=== PATIENT | male | born 1940 | race Caucasian/White ===

== ENCOUNTER 2016-08-03 10:08 | Inpatient (IN) | payer MEDICARE, OTHER ==
--- NOTE | ~2016-08-03 | DS ---
Discharge Summary [facility] [address] [place]. [address] NAME: ELISA OBRIEN : 40 STATUS : DIS IN PAT#: [id number] AGE: 75 ADM/REG DATE : 08/03/16 MR#: [id number] REPORT SERV DATE: 08/19/16 DICTATED BY: RON GALAVIZ DATE: 08/19/16 REPORT STATUS : Draft TRANSCRIBED BY: JASON DATE: 08/19/16 Data Collection from hospitalization DISCHARGE DIAGNOSES: 1. Coronary artery disease, status post coronary artery bypass grafting. 2. Hypertension. 3. Hyperlipidemia. 4. Dysphagia. 5. Severe gastroesophageal reflux disease, status post prior Denisse fundoplication. 6. History of ileostomy, secondary to ulcerative colitis. 7. History of diverticulitis. CONSULTATION: 1. Mir Castellano. 2. Dion Woods M.D. PROCEDURES: 1. Cardiac catheterization on 08/03/2016. 2. Coronary artery bypass grafting x4, using left internal mammary artery and right greater saphenous vein harvested endoscopically as graft. 3. Transesophageal echocardiogram on 08/04/2016. 4. Vein mapping of the bilateral lower extremities on 08/03/2016. 5. Carotid blood flow study on 08/03/2016. DISCHARGE MEDICATIONS: Cordarone 200 mg twice a day, aspirin 81 mg daily, Lipitor 40 mg at bedtime, Prinivil 2.5 mg daily, Lopressor 25 mg twice a day, Percocet 10/325 one tablet every four hours as needed, Zantac 150 mg daily as needed, Senokot one tablet twice a day as needed. CONDITION AT DISCHARGE: Stable. DISPOSITION: The patient was discharged home on a low-sodium, low-cholesterol, cardiac diet. Activities as instructed. He would follow up with Dr. Anastacio Greenfield on 08/30/[address] Saul Brian, on 09/06/2016. He would follow up with Dr. Ron Goyal, on 08/22/2016, and would follow up at cardiac rehab on 09/08/2016. HOSPITAL COURSE: This is a 75-year-old man, who was discharge from the hospital within the past 24 hours after being admitted for chest discomfort. He had an abnormal stress test. He went home on the evening prior to this admission and was awakened around two or three in the morning with nausea. He then developed some achiness again, this time in his throat and right neck area, along with some substernal discomfort. Because of these findings and the nausea, he presented back to the emergency room for evaluation. He had a chronic cough since upper respiratory symptoms earlier this year. He had no syncope or presyncope and had no lower extremity edema. He was admitted to the hospital at this time for further evaluation and treatment. Upon admission, troponin was negative. The ECG showed sinus rhythm with heart rate of 84. No acute repolarization changes were present. He had an abnormal perfusion study. It was Discharge Summary [place] [address] [place]. [address] NAME: ELISA OBRIEN : 40 STATUS : DIS IN PAT#: [id number] AGE: 75 ADM/REG DATE : 08/03/16 MR#: [id number] REPORT SERV DATE: 08/19/16 DICTATED BY: RON GALAVIZ DATE: 08/19/16 REPORT STATUS : Draft TRANSCRIBED BY: JASON DATE: 08/19/16 felt that he would need to undergo coronary angiography. He was taken to the cardiac clinical laboratory aides teacher where he underwent the above-mentioned procedure by Dr. Jesus Costa, he tolerated this well, and there were no complications. He was seen in consultation by Mir Castellano regarding multivessel coronary artery disease. His cardiac catheterization had revealed multivessel coronary artery disease including 75% stenosis to the left main coronary artery with ruptured plaque. He also had 90% stenosis to the mid LAD, 50% stenosis of the second diagonal, and 50% proximal RCA stenosis, with ejection fraction calculated around 60%, with no mention of valvular abnormality. It was felt that he would need to undergo urgent coronary artery bypass grafting. He had been placed in the ICU overnight and was on a heparin drip. He had no complaints of chest pain or shortness of breath. He had vein mapping of the bilateral lower extremities and a carotid blood flow study. The following day, he was taken to the operating room where he underwent the above-mentioned procedure. He tolerated this well and there were no complications. On postop day #1, he was briefly on Levophed, that was now off, he had no edema. He was off his pressors. He was up sitting in a chair. He said he felt well. Pain was tolerable. He was off drips. Mediastinal chest tube was removed. He was encouraged to mobilize. On 08/06/2016, his lungs were clear. He had no edema. Diuresis was begun. He did complain of some dysphagia and odynophagia. Nitroglycerin was discontinued. Metoprolol was increased. On 08/07/2016, he had no new complaints. His incisions looked okay. His lungs were clear. O2 was discontinued. He was seen by Dr. Dion Woods regarding dysphagia. He had been complaining of chronic recurrent dysphagia to solids and liquids. He had a Denisse fundoplication approximately seven years ago and had undergone an esophagus dilatation by Dr. Ron Goyal in the past. The patient felt that the stricture was back and he was having some trouble swallowing. He wanted further evaluation. White blood cell count was 12.6. He was felt to have possible esophageal spasm or reflux esophagitis. The patient was advised to treat himself with Prilosec and follow up with Dr. Ron Goyal for dilatation in the near future. Amiodarone was decreased. The next day, discharge planning was performed. He was ambulating in the sutton. On 08/09/2016, his lungs were clear. He did have a bowel movement. He was alert and cooperative. He had no focal deficits. Discharge instructions were given. Due to his improved and stable condition, he was discharged home to be followed by home health care with the above-stated instructions. Information collected by: Janine Ramirez I submit the above information as my discharge summary. TG/MODL Ron Galaviz M.D. / [id number] CC: MD Mann Yang M.D. Henry Paik, M.D. Discharge Summary [address] [address] NAME: ELISA OBRIEN : 40 STATUS : DIS IN PAT#: [id number] AGE: 75 ADM/REG DATE : 08/03/16 MR#: [id number] REPORT SERV DATE: 08/19/16 DICTATED BY: RON GALAVIZ DATE: 08/19/16 REPORT STATUS : Draft TRANSCRIBED BY: MODL DATE: 08/19/16 Mir Castellano NP
--- NOTE | ~2016-08-03 | CN ---
Consultation Report [facility] [address] [facility] [place]. [address] NAME: OMAR OBRIEN : 40 STATUS : ADM Linda PAT#: [id number] AGE: 75 ADM/REG DATE : 08/03/16 MR#: [id number] REPORT SERV DATE: 08/04/16 DICTATED BY: ARTURO GREENE DATE: 08/04/16 REPORT STATUS : Draft TRANSCRIBED BY: MODL DATE: 08/04/16 CONSULT DATE OF CONSULTATION: 08/03/2016 NURSE PRACTITIONER WITH CARDIOTHORACIC SURGERY REASON FOR CONSULTATION: Multivessel coronary artery disease. HISTORY OF PRESENT ILLNESS: This is a pleasant 75-year-old male with a history of severe GERD and ulcerative colitis. He recently presented to the emergency room a few days ago with chest pain but was told that his workup was negative and sent home. He re- presented back to the emergency room on 08/03/2016, with chest pain and again his EKG and troponin were negative. The patient was taken for cardiac catheterization yesterday afternoon and found to have multivessel coronary artery disease including a 75% stenosis to his left main coronary artery with ruptured plaque. He also had a 90% stenosis to the mid LAD; 50% stenosis of the second diagonal; and 50% proximal RCA stenosis with ejection fraction calculated around 60% with no mention of valvular abnormality. Cardiothoracic Surgery was asked to evaluate for urgent coronary artery bypass grafting. The patient has been in ICU overnight and is on heparin drip with no complaints of chest pain or shortness of breath. His family is with him at the bedside. PAST MEDICAL HISTORY: Ulcerative colitis, diverticulitis, and severe GERD. PAST SURGICAL HISTORY: He has had varicose vein stripping of his lower extremities, Denisse fundoplication for severe GERD, and ileostomy at the age of 25 for diverticulitis. FAMILY HISTORY: Father's history is unknown. No other family history of coronary artery disease. 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 He is . He has one grown child. He denies any history of tobacco abuse, alcohol abuse, or use of illicit drugs. ALLERGIES: HE REPORTS AN ALLERGY TO PENICILLIN. HOME MEDICATIONS: Aspirin 81 mg per day and ranitidine 150 mg p.o. as needed. REVIEW OF SYSTEMS: A 10-point review of systems was obtained and is negative other than HPI. PHYSICAL EXAMINATION: VITAL SIGNS: Temperature 98.3, heart rate 59, blood pressure 119/65, respiratory rate 17, and O2 saturation 98% on 2 liters. GENERAL: Pleasant thin male, in no acute distress. Consultation Report [place] [id number] [place]. [address] NAME: OMAR OBRIEN : 40 STATUS : ADM Linda PAT#: [id number] AGE: 75 ADM/REG DATE : 08/03/16 MR#: [id number] REPORT SERV DATE: 08/04/16 DICTATED BY: ARTURO GREENE DATE: 08/04/16 REPORT STATUS : Draft TRANSCRIBED BY: JASON DATE: 08/04/16 NEUROLOGIC: Alert and oriented x3. Pupils are equal, round, and reactive to light and accommodation. He exhibits equal strength bilaterally upper extremities and lower extremities. PSYCHIATRIC: Normal mood, talkative, pleasant. HEENT: Head normocephalic and atraumatic. Nose midline with no abnormalities. Teeth with good dentition overall. Ears with no abnormalities. Sclerae clear. NECK: Supple with no thyromegaly or lymphadenopathy. LUNGS: Clear to auscultation bilaterally with normal effort. CARDIAC: S1, S2 with no murmurs, rubs, or gallops. ABDOMEN: Soft. Nontender with active bowel sounds. He does have an ileostomy present. EXTREMITIES: Free of cyanosis, clubbing, or edema. LAB DATA: White blood cell count 7.8, hemoglobin 11.9, hematocrit 36.1, and platelets 271. Sodium 144, potassium 4.0, chloride 109, bicarbonate 26, BUN 19, creatinine 0.9, glucose 104, and hemoglobin A1c 5.6. ASSESSMENT AND PLAN: This is a pleasant 75-year-old male, who was recently admitted with chest pain, found to have multivessel coronary artery disease per arteriogram yesterday with left main coronary artery stenosis of 75% with a ruptured plaque. The patient needs urgent 3-to-4 vessel CAB. I have discussed the risks and benefits of surgery with the patient as well as his STS risk scores. STS risk stratification for him and this particular surgery include an overall mortality of 0.8% and morbidity mortality of 7.6%, and I have reviewed these findings in regard to expectations for surgery and recovery with him and his family. Addressed questions from the family and they are willing to proceed with surgery. We do appreciate the consultation. The patient will be taken for coronary artery bypass grafting today at 10 a.m. We look forward to helping you take care of Mr. Omar Obrien. DEBRA/JASON Arturo Greene NP / [id number] CC: MD Mann Yang M.D.
--- NOTE | ~2016-08-03 | CN ---
Consultation Report [facility] [address] [facility] [place]. [address] NAME: ELISA OBRIEN : 40 STATUS : ADM IN PAT#: [id number] AGE: 75 ADM/REG DATE : 08/03/16 MR#: [id number] REPORT SERV DATE: 08/07/16 DICTATED BY: DION WOODS DATE: 08/07/16 REPORT STATUS : Draft TRANSCRIBED BY: MODL DATE: 08/07/16 CONSULTATION DATE OF CONSULTATION: 08/07/2016 INDICATION: The patient with dysphagia. HISTORY OF PRESENT ILLNESS: 75-year-old gentleman with coronary artery disease, who presented with chest pain. Subsequent cardiac workup led him to have a bypass graft surgery two days ago. The patient also is complaining of chronic recurrent dysphagia to solids and liquids. He had a Denisse fundoplication approximately seven years ago and has had esophagus dilatation by Dr. Bashir Goyal in the past. The patient feels that the stricture is back, he is having some trouble swallowing, and he is wanting further evaluation. MEDICATIONS: Aspirin and Zantac. ALLERGIES: PENICILLIN. PHYSICAL EXAMINATION: VITAL SIGNS: Temperature is 99, blood pressure is 100/62, pulse of 72. HEENT: Head is normocephalic, atraumatic. Throat is clear. LUNGS: Clear. HEART: S1, S2 without murmurs, gallops, rubs. ABDOMEN: Normoactive bowel sounds. Soft, nondistended, nontender. EXTREMITIES: Negative for cyanosis, clubbing, edema. LABORATORY STUDIES: Shows sodium 142, potassium 3.9, BUN 24, creatinine 0.98. White count of 12.6, H and H of 9.8 and 30.2, platelet count of 210. IMPRESSION: The patient with dysphagia to solids and liquids. Possible esophageal spasm or reflux esophagitis. Regardless, I believe this is terrific for patient to undergo endoscopy and dilatation, especially given coronary artery bypass graft surgery just two days ago. I advised the patient to treat himself with Prilosec 20 mg p.o. b.i.d. and follow up with Dr. Bashir Goyal for dilatation in the near future. HP/JASON Dion Woods M.D. / [id number] Consultation Report [address] [address] NAME: ELISA OBRIEN : 40 STATUS : ADM IN PAT#: [id number] AGE: 75 ADM/REG DATE : 08/03/16 MR#: [id number] REPORT SERV DATE: 08/07/16 DICTATED BY: DION WOODS DATE: 08/07/16 REPORT STATUS : Draft TRANSCRIBED BY: MODL DATE: 08/07/16 CC: MD Mann Yang M.D.
--- NOTE | ~2016-08-03 | HP ---
History And Physical [place] [id number] [place]. [address] NAME: ELISA OBRIEN : 40 STATUS : DIS IN PAT#: [id number] AGE: 75 ADM/REG DATE : 08/03/16 MR#: [id number] REPORT SERV DATE: 08/11/16 DICTATED BY: RON WHITESIDE DATE: 08/03/16 REPORT STATUS : Draft TRANSCRIBED BY: MODLuisito DATE: 08/03/16 DATE OF ADMISSION: 08/03/2016 INDICATION: Substernal chest pain, ACS. HISTORY OF PRESENT ILLNESS: The patient is a 75-year-old white male who was discharged from the hospital within the last 24 hours after being admitted for chest discomfort. He had an abnormal stress test. He went home last evening, was awakened around two or three in the morning with nausea. He then developed some achiness again, this time in his throat and right neck area along with some substernal discomfort. Because of these findings and the nausea, he presented back to the emergency room for evaluation. He has had a chronic cough since upper respiratory symptoms earlier this year. He has had no syncope or presyncope. He has had no lower extremity edema. CURRENT HOME MEDICATIONS: Aspirin 81 daily and ranitidine 150 per day p.r.n. ALLERGIES OR INTOLERANCES: Penicillin. 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 His had worked with him until her back surgery a year ago, now he is working eighty hour weeks. He has one child. Negative for alcohol or tobacco use. FAMILY HISTORY: Father, unknown. Mother, no history of coronary artery disease. PAST MEDICAL HISTORY/REVIEW OF SYSTEMS: He had an ileostomy for diverticulitis at age 25. He is status post tonsillectomy and had previous sinus surgeries. He had a Denisse fundoplication for severe GERD. He had lower extremity varicose vein stripping. PHYSICAL EXAMINATION: GENERAL: A 75-year-old white male. VITAL SIGNS: Blood pressure 147/70, pulse 76 and regular, respirations 17. SKIN: No xanthelasmas. HEENT: He is normocephalic. There is no pallor. Sclerae white. NECK: JVD is not elevated. No carotid bruits. CHEST: There is good AP movement. No crackles. CARDIAC: S1 normal, S2 physiologic. There is an S4. ABDOMEN: Soft. Ileostomy in place. EXTREMITIES: Without edema. NEUROLOGIC: No focal deficits. LABORATORY DATA: BUN 17, creatinine 1.02. Hemoglobin 12.7, white count 9.3. Troponin is negative. ECG shows sinus rhythm, rate 84, no acute repolarization changes present. IMPRESSION: A 75-year-old white male, with recurrent chest discomfort, abnormal perfusion study. He is admitted for coronary angiography with further recommendations pending study outcomes. History And Physical [address] [address] NAME: ELISA OBRIEN : 40 STATUS : DIS IN PAT#: [id number] AGE: 75 ADM/REG DATE : 08/03/16 MR#: [id number] REPORT SERV DATE: 08/11/16 DICTATED BY: RON WHITESIDE DATE: 08/03/16 REPORT STATUS : Draft TRANSCRIBED BY: JASON DATE: 08/03/16 DW/JASON Ron Whiteside M.D. / [id number] CC: MD Mann Yang M.D. [facility]
[2016-08-03 09:56] LABS: BASOPHILS 0.2 %; BASOPHILS ABSOLUTE 0.02 10/3/uL (0.0-0.16); EOSINOPHILS 4.5 %; EOSINOPHILS ABSOLUTE 0.42 10/3/uL (0.0-0.53); ER CBC TAT 0 Hrs 07 Mins; HEMATOCRIT 38.8 % (40.0-51.0); HEMOGLOBIN 12.7 g/dL (13.6-17.8); IMMATURE GRANULOCYTES 0.3 %; IMMATURE GRANULOCYTES ABSOLUTE 0.03 10/3/uL (0.0-0.11); LYMPHOCYTES 9.2 %; LYMPHOCYTES ABSOLUTE 0.86 10/3/uL (0.67-4.30); MEAN CORPUS HGB CONC 32.7 g/dL (32.0-36.0); MEAN CORPUSCULAR VOLUME 85.7 fL (80-100); MEAN PLATELET VOLUME 9.3 fL (9.2-13.0); MONOCYTES 6.9 %; MONOCYTES ABSOLUTE 0.64 10/3/uL (0.21-1.20); NEUTROPHILS 78.9 %; NEUTROPHILS ABSOLUTE 7.34 10/3/uL (2.02-8.40); PLATELET COUNT 317 10/3/uL (150-400); RBC DISTRIBUTION WIDTH 16.4 % (12.0-16.0); RED CELL COUNT 4.53 10/6/uL (4.7-6.1); WHITE BLOOD CELLS 9.3 10/3/uL (4.5-10.5)
[2016-08-03 09:58] LABS: MANUAL DIFF NO %
[2016-08-03 10:02] LABS: PARTIAL THROMBO TIME 29.2 SEC (22.5-37.2)
[~2016-08-03 10:08] MED LIST: ASABAYER PO; TUMSROLL PO
[2016-08-03 10:11] LABS: BUN (BLOOD UREA NITROGEN) 17 MG/DL (6-23); CALCIUM, SERUM 9.6 MG/DL (8.5-10.4); CHEST PAIN PROFILE TAT 0 Hrs 22 Mins; CHLORIDE, SERUM 106 MMOL/L (96-112); CO2 (CARBON DIOXIDE) 28 MMOL/L (24-34); CREATININE 1.02 MG/DL (0.70-1.30); GFR AFRICAN AMERICAN 83 ML/MIN (>=60); GFR NON AFRICAN AMERICAN 72 ML/MIN (>=60); GLUCOSE, SERUM 102 MG/DL (60-99); SODIUM, SERUM 141 MMOL/L (135-148); TROPONIN I <0.02 NG/ML (<0.05)
[2016-08-03] MEDS ORDERED: ASA5GR PO (12:27)
[2016-08-03] MEDS ORDERED: ZANTAC 150 PO (12:28)
[2016-08-03 14:41] LABS: CHOL/HDL RATIO(NOT ORDER) 3.2 (0-5); CHOLESTEROL 219 MG/DL (< 200); HDL CHOLESTEROL 69 MG/DL (> 39); LDL CHOLESTEROL 131 MG/DL (< 130); NON-HDL CHOLESTEROL 150 MG/DL (< 160); TRIGLYCERIDE 96 MG/DL (< 150)
[2016-08-03 19:04] LABS: BASOPHILS 0.5 %; BASOPHILS ABSOLUTE 0.04 10/3/uL (0.0-0.16); EOSINOPHILS 7.7 %; EOSINOPHILS ABSOLUTE 0.67 10/3/uL (0.0-0.53); HEMATOCRIT 37.2 % (40.0-51.0); HEMOGLOBIN 12.1 g/dL (13.6-17.8); IMMATURE GRANULOCYTES 0.1 %; IMMATURE GRANULOCYTES ABSOLUTE 0.01 10/3/uL (0.0-0.11); LYMPHOCYTES 15.1 %; LYMPHOCYTES ABSOLUTE 1.32 10/3/uL (0.67-4.30); MEAN CORPUS HGB CONC 32.5 g/dL (32.0-36.0); MEAN CORPUSCULAR HEMOGLOB 27.9 pg (26.0-34.0); MEAN CORPUSCULAR VOLUME 85.9 fL (80-100); MEAN PLATELET VOLUME 9.3 fL (9.2-13.0); MONOCYTES 8.3 %; MONOCYTES ABSOLUTE 0.73 10/3/uL (0.21-1.20); NEUTROPHILS 68.3 %; NEUTROPHILS ABSOLUTE 5.98 10/3/uL (2.02-8.40); PLATELET COUNT 297 10/3/uL (150-400); RBC DISTRIBUTION WIDTH 16.5 % (12.0-16.0); RED CELL COUNT 4.33 10/6/uL (4.7-6.1); WHITE BLOOD CELLS 8.8 10/3/uL (4.5-10.5)
[2016-08-03 19:05] LABS: MANUAL DIFF NO %
[2016-08-03 19:08] LABS: INTERNATIONAL NORMAL RATI 1.1 UNITS (-); PROTIME (NOT ORD) 14.3 SEC (12.0-14.5)
[2016-08-03 19:23] LABS: A/G RATIO 0.8 (0.7-1.9); ALBUMIN 3.1 G/DL (3.5-5.0); ALKALINE PHOSPHATASE 79 U/L (45-117); BUN (BLOOD UREA NITROGEN) 17 MG/DL (6-23); CALCIUM, SERUM 8.9 MG/DL (8.5-10.4); CHLORIDE, SERUM 108 MMOL/L (96-112); CO2 (CARBON DIOXIDE) 24 MMOL/L (24-34); CREATININE 1.04 MG/DL (0.70-1.30); GFR AFRICAN AMERICAN 81 ML/MIN (>=60); GFR NON AFRICAN AMERICAN 70 ML/MIN (>=60); GLOBULIN 3.9 G/DL (2.5-4.1); GLUCOSE, SERUM 95 MG/DL (60-99); SGOT(AST) 18 U/L (5-40); SGPT(ALT) 15 U/L (5-65); SODIUM, SERUM 143 MMOL/L (135-148); TOTAL BILIRUBIN 0.3 MG/DL (0-1.2); TROPONIN I <0.02 NG/ML (<0.05)
[2016-08-03 21:47] LABS: ASCORBIC ACID (UR NOT ORDER) NEG (NEG); BILIRUBIN, URINE NEGATIVE (NEG); KETONE, URINE NEGATIVE (NEG); LEUKOCYTE ESTERASE(NOT OR NEG (NEG); WBC (NOT ORDERED) (RFLEX) < 1 (0-5)
[2016-08-04 03:21] LABS: BASOPHILS 0.5 %; BASOPHILS ABSOLUTE 0.04 10/3/uL (0.0-0.16); EOSINOPHILS 10.8 %; EOSINOPHILS ABSOLUTE 0.84 10/3/uL (0.0-0.53); HEMATOCRIT 36.1 % (40.0-51.0); HEMOGLOBIN 11.9 g/dL (13.6-17.8); IMMATURE GRANULOCYTES 0.1 %; IMMATURE GRANULOCYTES ABSOLUTE 0.01 10/3/uL (0.0-0.11); LYMPHOCYTES 16.4 %; LYMPHOCYTES ABSOLUTE 1.28 10/3/uL (0.67-4.30); MEAN CORPUSCULAR HEMOGLOB 28.1 pg (26.0-34.0); MEAN CORPUSCULAR VOLUME 85.1 fL (80-100); MONOCYTES 6.9 %; MONOCYTES ABSOLUTE 0.54 10/3/uL (0.21-1.20); NEUTROPHILS 65.3 %; NEUTROPHILS ABSOLUTE 5.09 10/3/uL (2.02-8.40); PLATELET COUNT 271 10/3/uL (150-400); RBC DISTRIBUTION WIDTH 16.7 % (12.0-16.0); RED CELL COUNT 4.24 10/6/uL (4.7-6.1); WHITE BLOOD CELLS 7.8 10/3/uL (4.5-10.5)
[2016-08-04 03:22] LABS: MANUAL DIFF NO %
[2016-08-04 03:27] LABS: INTERNATIONAL NORMAL RATI 1.1 UNITS (-); PROTIME (NOT ORD) 14.3 SEC (12.0-14.5)
[2016-08-04 03:28] LABS: PARTIAL THROMBO TIME 82.8 SEC (22.5-37.2)
[2016-08-04 03:36] LABS: BUN (BLOOD UREA NITROGEN) 19 MG/DL (6-23); CALCIUM, SERUM 8.7 MG/DL (8.5-10.4); CHLORIDE, SERUM 109 MMOL/L (96-112); CHOL/HDL RATIO(NOT ORDER) 2.7 (0-5); CHOLESTEROL 181 MG/DL (< 200); CO2 (CARBON DIOXIDE) 26 MMOL/L (24-34); CREATININE 0.95 MG/DL (0.70-1.30); GFR AFRICAN AMERICAN 90 ML/MIN (>=60); GFR NON AFRICAN AMERICAN 78 ML/MIN (>=60); GLUCOSE, SERUM 104 MG/DL (60-99); HDL CHOLESTEROL 66 MG/DL (> 39); LDL CHOLESTEROL 98 MG/DL (< 130); NON-HDL CHOLESTEROL 115 MG/DL (< 160); SGPT(ALT) 17 U/L (5-65); SODIUM, SERUM 144 MMOL/L (135-148); TRIGLYCERIDE 85 MG/DL (< 150)
[2016-08-04 15:20] LABS: BE (BASE EXCESS) -3.3 MEQ/L (0 +/- 2.5); CARBOXYHEMOGLOBIN 0.3 % (0-3); INSTRUMENT SERIAL # 11843; METHEMOGLOBIN 0.5 % (0-3); MODE SIMV; O2 CONTENT 14.4 VOL% (18-24); OPERATOR ID 35188; PCO2 (CO2 TENSION) 41 MMHG (35-45); PO2 (O2 TENSION) 237 MMHG (79-93); SAMPLE Arterial; TIDAL VOLUME 600 ML; pH 7.35 (7.37-7.43)
[2016-08-04 15:32] LABS: BASOPHILS 0.2 %; BASOPHILS ABSOLUTE 0.02 10/3/uL (0.0-0.16); EOSINOPHILS 1.6 %; IMMATURE GRANULOCYTES 0.3 %; IMMATURE GRANULOCYTES ABSOLUTE 0.04 10/3/uL (0.0-0.11); LYMPHOCYTES ABSOLUTE 0.51 10/3/uL (0.67-4.30); MEAN CORPUSCULAR VOLUME 84.8 fL (80-100); MEAN PLATELET VOLUME 8.8 fL (9.2-13.0); MONOCYTES 1.6 %; MONOCYTES ABSOLUTE 0.21 10/3/uL (0.21-1.20); NEUTROPHILS 92.3 %; NEUTROPHILS ABSOLUTE 11.92 10/3/uL (2.02-8.40); RBC DISTRIBUTION WIDTH 16.6 % (12.0-16.0)
[2016-08-04 15:34] LABS: HEMATOCRIT 27.3 % (40.0-51.0); MANUAL DIFF NO %; PLATELET COUNT 183 10/3/uL (150-400); RED CELL COUNT 3.22 10/6/uL (4.7-6.1); WHITE BLOOD CELLS 12.9 10/3/uL (4.5-10.5)
[2016-08-04 15:42] LABS: INTERNATIONAL NORMAL RATI 1.4 UNITS (-); PARTIAL THROMBO TIME 31.4 SEC (22.5-37.2); PROTIME (NOT ORD) 16.6 SEC (12.0-14.5)
[2016-08-04 15:44] LABS: BUN (BLOOD UREA NITROGEN) 17 MG/DL (6-23); CALCIUM, SERUM 8.8 MG/DL (8.5-10.4); CHLORIDE, SERUM 112 MMOL/L (96-112); CO2 (CARBON DIOXIDE) 25 MMOL/L (24-34); CREATININE 1.14 MG/DL (0.70-1.30); GFR AFRICAN AMERICAN 73 ML/MIN (>=60); GFR NON AFRICAN AMERICAN 63 ML/MIN (>=60); GLUCOSE, SERUM 97 MG/DL (60-99); POTASSIUM, SERUM 3.8 MMOL/L (3.5-5.3); SODIUM, SERUM 143 MMOL/L (135-148)
[2016-08-04 21:06] LABS: BE (BASE EXCESS) -7.7 MEQ/L (0 +/- 2.5); CARBOXYHEMOGLOBIN 0.3 % (0-3); DEVICE VM; HCO3 (ACTUAL BICARBONATE) 18.3 MEQ/L (23-27); HEMOBLOGIN CONTENT 11.3 G/DL (14-18); INSTRUMENT SERIAL # 11843; METHEMOGLOBIN 0.6 % (0-3); O2 CONTENT 15.5 VOL% (18-24); OPERATOR ID 33214; PCO2 (CO2 TENSION) 39 MMHG (35-45); PO2 (O2 TENSION) 113 MMHG (79-93); SAMPLE Arterial; pH 7.29 (7.37-7.43)
[2016-08-04 21:10] LABS: BUN (BLOOD UREA NITROGEN) 18 MG/DL (6-23); CALCIUM, SERUM 8.2 MG/DL (8.5-10.4); CHLORIDE, SERUM 114 MMOL/L (96-112); CREATININE 1.15 MG/DL (0.70-1.30); GFR AFRICAN AMERICAN 72 ML/MIN (>=60); GFR NON AFRICAN AMERICAN 62 ML/MIN (>=60); GLUCOSE, SERUM 105 MG/DL (60-99); POTASSIUM, SERUM 4.5 MMOL/L (3.5-5.3); SODIUM, SERUM 144 MMOL/L (135-148)
[2016-08-04 21:11] LABS: CO2 (CARBON DIOXIDE) 19 MMOL/L (24-34)
[2016-08-04 22:28] LABS: BASOPHILS 0.1 %; BASOPHILS ABSOLUTE 0.01 10/3/uL (0.0-0.16); EOSINOPHILS 0 %; HEMOGLOBIN 10.4 g/dL (13.6-17.8); IMMATURE GRANULOCYTES 0.2 %; IMMATURE GRANULOCYTES ABSOLUTE 0.04 10/3/uL (0.0-0.11); LYMPHOCYTES 5.5 %; LYMPHOCYTES ABSOLUTE 0.96 10/3/uL (0.67-4.30); MEAN CORPUS HGB CONC 32.7 g/dL (32.0-36.0); MEAN CORPUSCULAR HEMOGLOB 27.9 pg (26.0-34.0); MEAN CORPUSCULAR VOLUME 85.3 fL (80-100); MEAN PLATELET VOLUME 9.9 fL (9.2-13.0); MONOCYTES 3.8 %; MONOCYTES ABSOLUTE 0.66 10/3/uL (0.21-1.20); NEUTROPHILS 90.4 %; NEUTROPHILS ABSOLUTE 15.79 10/3/uL (2.02-8.40); RBC DISTRIBUTION WIDTH 16.8 % (12.0-16.0); RED CELL COUNT 3.73 10/6/uL (4.7-6.1); WHITE BLOOD CELLS 17.5 10/3/uL (4.5-10.5)
[2016-08-04 22:30] LABS: HEMATOCRIT 31.8 % (40.0-51.0); MANUAL DIFF NO %; PLATELET COUNT 243 10/3/uL (150-400)
[2016-08-04 23:00] LABS: FIBRINOGEN 408 MG/DL (230-462)
[2016-08-05 03:35] LABS: BASOPHILS 0 %; EOSINOPHILS 0 %; HEMATOCRIT 29.5 % (40.0-51.0); HEMOGLOBIN 9.5 g/dL (13.6-17.8); IMMATURE GRANULOCYTES 0.2 %; IMMATURE GRANULOCYTES ABSOLUTE 0.03 10/3/uL (0.0-0.11); LYMPHOCYTES 2.4 %; LYMPHOCYTES ABSOLUTE 0.36 10/3/uL (0.67-4.30); MEAN CORPUS HGB CONC 32.2 g/dL (32.0-36.0); MEAN CORPUSCULAR HEMOGLOB 27.5 pg (26.0-34.0); MEAN CORPUSCULAR VOLUME 85.5 fL (80-100); MEAN PLATELET VOLUME 9.3 fL (9.2-13.0); MONOCYTES ABSOLUTE 0.59 10/3/uL (0.21-1.20); NEUTROPHILS 93.4 %; NEUTROPHILS ABSOLUTE 13.73 10/3/uL (2.02-8.40); PLATELET COUNT 208 10/3/uL (150-400); RBC DISTRIBUTION WIDTH 16.9 % (12.0-16.0); RED CELL COUNT 3.45 10/6/uL (4.7-6.1); WHITE BLOOD CELLS 14.7 10/3/uL (4.5-10.5)
[2016-08-05 03:36] LABS: MANUAL DIFF NO %
[2016-08-05 03:39] LABS: INTERNATIONAL NORMAL RATI 1.2 UNITS (-); PROTIME (NOT ORD) 15.4 SEC (12.0-14.5)
[2016-08-05 03:47] LABS: BUN (BLOOD UREA NITROGEN) 19 MG/DL (6-23); CALCIUM, SERUM 7.9 MG/DL (8.5-10.4); CHLORIDE, SERUM 116 MMOL/L (96-112); CO2 (CARBON DIOXIDE) 20 MMOL/L (24-34); CREATININE 1.19 MG/DL (0.70-1.30); GFR AFRICAN AMERICAN 69 ML/MIN (>=60); GFR NON AFRICAN AMERICAN 59 ML/MIN (>=60); GLUCOSE, SERUM 108 MG/DL (60-99); POTASSIUM, SERUM 4.6 MMOL/L (3.5-5.3); SODIUM, SERUM 147 MMOL/L (135-148)
[2016-08-06 04:12] LABS: BASOPHILS 0.1 %; BASOPHILS ABSOLUTE 0.01 10/3/uL (0.0-0.16); EOSINOPHILS 0 %; HEMATOCRIT 30.8 % (40.0-51.0); HEMOGLOBIN 9.8 g/dL (13.6-17.8); IMMATURE GRANULOCYTES 0.4 %; IMMATURE GRANULOCYTES ABSOLUTE 0.06 10/3/uL (0.0-0.11); LYMPHOCYTES 3.5 %; LYMPHOCYTES ABSOLUTE 0.52 10/3/uL (0.67-4.30); MANUAL DIFF NO %; MEAN CORPUS HGB CONC 31.8 g/dL (32.0-36.0); MEAN CORPUSCULAR HEMOGLOB 27.7 pg (26.0-34.0); MEAN PLATELET VOLUME 9.5 fL (9.2-13.0); MONOCYTES 7.2 %; MONOCYTES ABSOLUTE 1.08 10/3/uL (0.21-1.20); NEUTROPHILS 88.8 %; NEUTROPHILS ABSOLUTE 13.36 10/3/uL (2.02-8.40); PLATELET COUNT 202 10/3/uL (150-400); RBC DISTRIBUTION WIDTH 17.2 % (12.0-16.0); RED CELL COUNT 3.54 10/6/uL (4.7-6.1)
[2016-08-06 04:27] LABS: CALCIUM, SERUM 8.3 MG/DL (8.5-10.4); CHLORIDE, SERUM 111 MMOL/L (96-112); CO2 (CARBON DIOXIDE) 22 MMOL/L (24-34); CREATININE 1.13 MG/DL (0.70-1.30); GFR AFRICAN AMERICAN 73 ML/MIN (>=60); GFR NON AFRICAN AMERICAN 63 ML/MIN (>=60); POTASSIUM, SERUM 4.9 MMOL/L (3.5-5.3); SODIUM, SERUM 142 MMOL/L (135-148)
[2016-08-06 04:29] LABS: BUN (BLOOD UREA NITROGEN) 23 MG/DL (6-23); GLUCOSE, SERUM 149 MG/DL (60-99)
[2016-08-07 04:13] LABS: BASOPHILS 0.2 %; BASOPHILS ABSOLUTE 0.02 10/3/uL (0.0-0.16); EOSINOPHILS 0.5 %; EOSINOPHILS ABSOLUTE 0.06 10/3/uL (0.0-0.53); HEMATOCRIT 30.2 % (40.0-51.0); HEMOGLOBIN 9.8 g/dL (13.6-17.8); IMMATURE GRANULOCYTES 0.3 %; IMMATURE GRANULOCYTES ABSOLUTE 0.04 10/3/uL (0.0-0.11); LYMPHOCYTES 7.8 %; LYMPHOCYTES ABSOLUTE 0.98 10/3/uL (0.67-4.30); MEAN CORPUS HGB CONC 32.5 g/dL (32.0-36.0); MEAN CORPUSCULAR HEMOGLOB 27.9 pg (26.0-34.0); MEAN PLATELET VOLUME 9.7 fL (9.2-13.0); MONOCYTES 8.6 %; MONOCYTES ABSOLUTE 1.08 10/3/uL (0.21-1.20); NEUTROPHILS 82.6 %; NEUTROPHILS ABSOLUTE 10.38 10/3/uL (2.02-8.40); PLATELET COUNT 210 10/3/uL (150-400); RBC DISTRIBUTION WIDTH 17.2 % (12.0-16.0); RED CELL COUNT 3.51 10/6/uL (4.7-6.1); WHITE BLOOD CELLS 12.6 10/3/uL (4.5-10.5)
[2016-08-07 04:21] LABS: MANUAL DIFF NO %
[2016-08-07 04:23] LABS: BUN (BLOOD UREA NITROGEN) 24 MG/DL (6-23); CALCIUM, SERUM 8.1 MG/DL (8.5-10.4); CHLORIDE, SERUM 107 MMOL/L (96-112); CO2 (CARBON DIOXIDE) 29 MMOL/L (24-34); CREATININE 0.98 MG/DL (0.70-1.30); GFR AFRICAN AMERICAN 87 ML/MIN (>=60); GFR NON AFRICAN AMERICAN 75 ML/MIN (>=60); GLUCOSE, SERUM 109 MG/DL (60-99); POTASSIUM, SERUM 3.9 MMOL/L (3.5-5.3); SODIUM, SERUM 142 MMOL/L (135-148)
[2016-08-08 05:17] LABS: BASOPHILS 0.3 %; BASOPHILS ABSOLUTE 0.03 10/3/uL (0.0-0.16); EOSINOPHILS 4.4 %; EOSINOPHILS ABSOLUTE 0.45 10/3/uL (0.0-0.53); HEMATOCRIT 30.7 % (40.0-51.0); HEMOGLOBIN 10.1 g/dL (13.6-17.8); IMMATURE GRANULOCYTES 0.3 %; IMMATURE GRANULOCYTES ABSOLUTE 0.03 10/3/uL (0.0-0.11); LYMPHOCYTES 12.9 %; LYMPHOCYTES ABSOLUTE 1.31 10/3/uL (0.67-4.30); MEAN CORPUS HGB CONC 32.9 g/dL (32.0-36.0); MEAN CORPUSCULAR HEMOGLOB 28.1 pg (26.0-34.0); MEAN CORPUSCULAR VOLUME 85.3 fL (80-100); MONOCYTES 7.5 %; MONOCYTES ABSOLUTE 0.76 10/3/uL (0.21-1.20); NEUTROPHILS 74.6 %; NEUTROPHILS ABSOLUTE 7.56 10/3/uL (2.02-8.40); PLATELET COUNT 250 10/3/uL (150-400); RBC DISTRIBUTION WIDTH 16.9 % (12.0-16.0); WHITE BLOOD CELLS 10.1 10/3/uL (4.5-10.5)
[2016-08-08 05:20] LABS: MANUAL DIFF NO %
[2016-08-08 05:29] LABS: BUN (BLOOD UREA NITROGEN) 21 MG/DL (6-23); CALCIUM, SERUM 8.2 MG/DL (8.5-10.4); CHLORIDE, SERUM 109 MMOL/L (96-112); CO2 (CARBON DIOXIDE) 27 MMOL/L (24-34); CREATININE 0.92 MG/DL (0.70-1.30); GFR AFRICAN AMERICAN 94 ML/MIN (>=60); GFR NON AFRICAN AMERICAN 81 ML/MIN (>=60); GLUCOSE, SERUM 110 MG/DL (60-99); POTASSIUM, SERUM 3.9 MMOL/L (3.5-5.3); SODIUM, SERUM 142 MMOL/L (135-148)
[2016-08-09] MEDS ORDERED: ASAB PO (08:01)
[2016-08-09] MEDS ORDERED: CORDARONE PO (08:02)
[2016-08-09] MEDS ORDERED: LIPITOR40 PO (08:02)
[2016-08-09] MEDS ORDERED: LOP25 PO (08:02)
[2016-08-09] MEDS ORDERED: PERCOCET 10/3251 TAB PO (08:03)
[2016-08-09] MEDS ORDERED: PRIN2.5 PO (08:03)
[2016-08-09] MEDS ORDERED: SENTAB PO (08:03)
== END 2016-08-09 13:39 | disposition home health service (06) | DRG 234 ==
LOC: ER 10:08 → CDU1 13:00 → CDU2 13:19 → CVICU 17:59 → 5NO 08-05 12:29
PROVIDERS: Emergency Medicine; Internal Medicine Cardiovascular Disease; Nurse Practitioner Family; Student in an Organized Health Care Education/Training Program; Thoracic Surgery (Cardiothoracic Vascular Surgery)
PROC: 06BP0ZZ Excision of Right Saphenous Vein, Open Approach (ICD-10-PCS; 2016-08-04)
PROC: 5A1221Z Performance of Cardiac Output, Continuous (ICD-10-PCS; 2016-08-04)
PROC: B246ZZ4 Ultrasonography of Right and Left Heart, Transesophageal (ICD-10-PCS; 2016-08-04)
PROC: 4A023N7 Measurement of Cardiac Sampling and Pressure, Left Heart, Percutaneous Approach (ICD-10-PCS; principal; 2016-08-07)
PROC: B2111ZZ Fluoroscopy of Multiple Coronary Arteries using Low Osmolar Contrast (ICD-10-PCS; 2016-08-07)
PROC: 021209W Bypass Coronary Artery, Three Arteries from Aorta with Autologous Venous Tissue, Open Approach (ICD-10-PCS; 2016-08-07)
PROC: 02100Z9 Bypass Coronary Artery, One Artery from Left Internal Mammary, Open Approach (ICD-10-PCS; 2016-08-07)
PROC: B2151ZZ Fluoroscopy of Left Heart using Low Osmolar Contrast (ICD-10-PCS; 2016-08-07)
DX: I25.110 Atherosclerotic heart disease of native coronary artery with unstable angina pectoris (principal); K51.90 Ulcerative colitis, unspecified, without complications; Z88.0 Allergy status to penicillin; Z79.82 Long term (current) use of aspirin; K21.9 Gastro-esophageal reflux disease without esophagitis; E78.5 Hyperlipidemia, unspecified; Z93.2 Ileostomy status; R13.12 Dysphagia, oropharyngeal phase; Z63.79 Other stressful life events affecting family and household
CPT/HCPCS: 36415; 71010; 71020; 71275; 72050; 78452; 80048; 80053; 80061; 81001; 82330; 82803; 82805; 82947; 82962; 83036; 83735; 84132; 84295; 84460; 84484; 85014; 85018; 85025; 85347; 85379; 85384; 85610; 85730; 86850; 86900; 86901; 86920; 87641; 93005; 93017; 93312; 93320; 93325; 93459; 93880; 94002; 94640; 94660; 94770; 96374; 96375; 96376; 99152; 99153; 99285; A9270-GY; A9502; C1713; C1769; C1887; C1894; G0365; G0378; J0690; J1170; J1644; J1885; J2150; J2250; J2370; J2405; J2440; J2720; J2800; J2930; J3010; J3370; J3475; P9045; P9047; Q9967

== ENCOUNTER 2016-09-14 09:23 | Inpatient (IN) | payer MEDICARE, OTHER ==
--- NOTE | ~2016-09-14 | DS ---
Discharge Summary [place] [address] [place]. [address] NAME: ELISA OBRIEN : 40 STATUS : ADM IN PAT#: [id number] AGE: 75 ADM/REG DATE : 09/14/16 MR#: [id number] REPORT SERV DATE: 09/17/16 DICTATED BY: CATALINA CHAVEZ DATE: 09/17/16 REPORT STATUS : Draft TRANSCRIBED BY: MODL DATE: 09/17/16 ADMISSION DATE: 09/14/2016 DISCHARGE DATE: ADDENDUM: The patient was initially to be discharged on 09/17, however, there were some concerns about his rhythm strips. He was held for an additional 24 hours. Cardiology was consulted. An echocardiogram was ordered. Echocardiogram is currently pending. It was felt that the telemetry changes were artifact. Patient had no further symptoms or problems. It was recommended he discontinue his beta sloane completely, and he was discharged with previously scheduled followup on the . CHI DISPOSITION: Pending review of his echocardiogram. He will be discharged, changes to his medications will be that he will no longer take any Lopressor at this time. Other medications stay the same. DICTATED BY: Catalina Chavez M.D. TLJm/JASON Catalina Chavez M.D. / [id number] CC: Juliana Da Silva M.D.
--- NOTE | ~2016-09-14 | DS ---
Discharge Summary [facility] [address] [place]. [address] NAME: ELISA OBRIEN : 40 STATUS : ADM IN [facility]#: [id number] AGE: 75 ADM/REG DATE : 09/14/16 MR#: [id number] REPORT SERV DATE: 09/16/16 DICTATED BY: CATALINA CHAVEZ DATE: 09/16/16 REPORT STATUS : Draft TRANSCRIBED BY: MODL DATE: 09/16/16 ADMISSION DATE: 09/14/2016 DISCHARGE DATE: 09/16/2016 FINAL HOSPITAL DIAGNOSES: 1. Nausea, vomiting, and dizziness. 2. Acute kidney injury felt secondary to hypotension and volume depletion. 3. Coronary artery disease with recent coronary artery bypass graft. 4. Hyperlipidemia. 5. Gastroesophageal reflux disease. 6. History of ulcerative colitis. CONSULTATIONS: None. PROCEDURES: CT scan of the abdomen and pelvis showing no evidence of acute abnormality within the abdomen or pelvis, small hiatal hernia, probable sludge in the gallbladder, no evidence of calcified stone or pericholecystic inflammation. Bilateral nonobstructing nephrolithiasis. Right renal cyst. Right lower quadrant ostomy. Catheter present in the urinary bladder. CURRENT PHYSICAL FINDINGS AND HISTORY OF PRESENT ILLNESS: Please see initial dictation H and P by Dr. Fowler. In brief, the patient is a 75-year-old male, who was recently hospitalized in early August with coronary artery disease, status post CABG, presented with nausea at home, decreased p.o. intake, orthostasis, and hypotension. Vital signs at the time of presentation, blood pressure was 127/80, temperature was 98.0, and heart rate was 74. LABORATORY DATA: Creatinine on presentation was 2.63, subsequent was 1.93 and 1.5 today. Troponin was less than 0.02. White count was 12.2 with a repeat the following day at 9.8. Followup hemoglobin and hematocrit were 11.4 and 35.3. Urinalysis was unremarkable. Chest x-ray was negative. EKG showed sinus bradycardia and no acute changes. HOSPITAL COURSE: The patient was admitted. He is felt to have acute kidney injury secondary to volume depletion, and he was given IV fluids. A Murillo catheter was temporarily placed which was removed the following day without any difficulty voiding. Serial laboratory was followed noting his renal function improving to 1.5. It showed no other significant complications. He was tolerating p.o. without any further vomiting. He had orthostatics that were unremarkable and he was felt stable for discharge. He did have questions on his medications. He had stopped his FUENTES inhibitor and halved his metoprolol prior to admission. They have not been restarted. Both medications were recommended to him post bypass. He is a little hesitant restarting the medications. I have advised him to see if he can tolerate a very low-dose beta sloane and start from there given his recent surgery. He has a home blood pressure cuff to monitor both for symptoms of low blood pressure and any palpitations from stopping or decreasing the medication. In either rate, he will schedule a followup appointment with his osteologist next week. He will continue aspirin 81, Lipitor 40, and Discharge Summary [address] [place]. [address] NAME: ELISA OBRIEN : 40 STATUS : ADM IN [facility]#: [id number] AGE: 75 ADM/REG DATE : 09/14/16 MR#: [id number] REPORT SERV DATE: 09/16/16 DICTATED BY: CATALINA CHAVEZ DATE: 09/16/16 REPORT STATUS : Draft TRANSCRIBED BY: JASON DATE: 09/16/16 Zantac 150 b.i.d. He will not restart his FUENTES inhibitor, given his renal insufficiency, at this time. DICTATED BY: Catalina Chavez M.D. TLF/JASON Catalina Chavez M.D. / [id number] CC: Juliana Da Silva M.D.
--- NOTE | ~2016-09-14 | CN ---
Consultation Report [facility] [address] [place]. [address] NAME: ELISA OBRIEN : 40 STATUS : ADM IN [facility]#: [id number] AGE: 75 ADM/REG DATE : 09/14/16 MR#: [id number] REPORT SERV DATE: 09/17/16 DICTATED BY: PARIS ARNDT DATE: 09/16/16 REPORT STATUS : Draft TRANSCRIBED BY: MODL DATE: 09/16/16 CARDIOLOGY CONSULT NOTE DATE OF CONSULTATION: 09/16/2016 REASON FOR CONSULTATION: Nausea, vomiting, dizziness, and acute renal failure in a patient with recent coronary artery bypass grafting surgery. HISTORY OF PRESENT ILLNESS: Mr. Obrien is a 75-year-old man with recently diagnosed coronary artery disease. The patient is status post coronary artery bypass grafting surgery approximately one month ago. He is followed by Dr. Brian. The patient had been recovering well from his bypass surgery. He was to start cardiac rehab this week. However, the patient developed nausea and vomiting approximately three to five days ago. The patient had multiple episodes of emesis. The patient reports that he has been having chronic dysphagia prior to this. He has a history of ulcerative colitis and is status post partial colectomy with a right lower quadrant ileostomy. The patient was being treated with metoprolol and had been hemodynamically stable with no significant symptoms related to this for several weeks. The patient denies unusual chest pain, though he has been having some shortness of breath recently, particularly after he began to develop the nausea and vomiting. The patient has been repleted with IV fluids. His metoprolol has been withheld. The patient was found to have acute renal failure at the time of admission, though this has significantly improved. The patient is presently tolerating oral intake and was to go home today. The Cardiology Service has apparently been consulted to make recommendations regarding the patient's cardiac medication regimen. PAST MEDICAL HISTORY: 1. Coronary artery disease with coronary artery bypass grafting surgery in August 2016. 2. Dyslipidemia. 3. Dysphagia. 4. Gastroesophageal reflux disease status post Denisse procedure. 5. Diverticulosis. 6. Hyperlipidemia. 7. Ulcerative colitis with history of ileostomy and colectomy. PAST SURGICAL HISTORY: 1. Ileostomy and colectomy secondary to ulcerative colitis. 2. Tonsillectomy. 3. Sinus surgery. 4. Denisse procedure. 5. Left lower leg varicose vein stripping. 6. Coronary artery bypass grafting surgery approximately one month ago. SOCIAL HISTORY: The patient is and has no history of tobacco, alcohol, or drug use. Consultation Report [address] [place]. [address] NAME: ELISA OBRIEN : 40 STATUS : ADM IN [facility]#: [id number] AGE: 75 ADM/REG DATE : 09/14/16 MR#: [id number] REPORT SERV DATE: 09/17/16 DICTATED BY: PARIS ARNDT DATE: 09/16/16 REPORT STATUS : Draft TRANSCRIBED BY: JASON DATE: 09/16/16 FAMILY HISTORY: Significant for intracranial aneurysm in the patient's mother. However, she of this at age 90. ALLERGIES: THE PATIENT HAS A PENICILLIN ALLERGY. HOME MEDICATIONS: 1. Aspirin 81 mg p.o. daily. 2. Atorvastatin 40 mg p.o. q.h.s. 3. Metoprolol tartrate 12.5 mg p.o. twice daily. 4. Ranitidine 150 mg p.o. twice daily. REVIEW OF SYSTEMS: A complete 12-system review was performed. This is noncontributory, except for the pertinent positives and negatives noted in the history of present illness above. PHYSICAL EXAMINATION: VITAL SIGNS: Temperature is 99.0 degrees Fahrenheit, blood pressure is 115/56 mmHg, heart rate is 72 beats per minute and regular, respirations 18, and oxygen saturation is 97% on room air. CONSTITUTIONAL: The patient is a well-nourished, well-developed white man, in no acute distress. EYES: PERRL, EOMI, clear conjunctiva. HEAD/MNT: NCAT with moist mucous membranes and grossly normal hard and soft palate. NECK: Supple with no obvious thyromegaly or lymphadenopathy. CARDIOVASCULAR: There is a regular rhythm with a normal S1 and a physiologically split second heart sound. No significant murmurs, rubs, or gallops are noted. PULMONARY: Clear to auscultation bilaterally, no wheezing, rales or rhonchi noted. No dullness to percussion. Non-labored. ABDOMINAL: Soft, nontender, nondistended with no hepatosplenomegaly noted. There is a colostomy bag noted in the right lower quadrant, which is clean, dry, and intact. Bowel sounds are normoactive and no organomegaly is noted. EXTREMITIES: No clubbing, cyanosis or edema. MUSCULOSKELETAL: Grossly normal strength and range of motion in all extremities. INTEGUMENTARY: Skin appears intact with no bruises, wounds or active lesions noted. NEURO/PSYC: Alert and oriented x3, with no dysarthria, facial droop or lateralizing weakness noted. ANTERIOR CHEST WALL: A well-healed sternotomy wound is noted. This appears stable with no evidence of fluctuance or exudate. IMAGING: A 12-lead EKG: The patient's 12-lead EKG shows sinus bradycardia with a first degree AV block and a heart rate of 57 beats per minute. There is T-wave inversion in leads V1 through V5 suggestive of ischemia. Otherwise, unremarkable tracing. LABORATORY DATA: CBC from yesterday, 09/15/2016 shows a white blood cell count of 9.8, hemoglobin 11.4, hematocrit 35, platelets 277. Electrolytes this morning show a sodium of Consultation Report [address] [address] NAME: ELISA OBRIEN : 40 STATUS : ADM IN PAT#: [id number] AGE: 75 ADM/REG DATE : 09/14/16 MR#: [id number] REPORT SERV DATE: 09/17/16 DICTATED BY: PARIS ARNDT DATE: 09/16/16 REPORT STATUS : Draft TRANSCRIBED BY: JASON DATE: 09/16/16 140, potassium 4.1, chloride is 110, carbon dioxide 24, BUN is 26, creatinine is 1.51, calcium is 8.3, and glucose is 96. The patient's admission creatinine was approximately 2.0. ASSESSMENT AND PLAN: 1. Hypertension and renal failure: The patient was on an extremely low dose of metoprolol, which I feel was probably not the primary cause of his presentation. The patient's presentation is more likely to be secondary to his gastrointestinal conditions. We will gently rehydrate as tolerated. The patient apparently has preserved left ventricular systolic function according to his pre-surgery cardiac catheterization. It would be reasonable to hold metoprolol as the patient was on an essentially subtherapeutic dose to start of, but then he has no known history of myocardial infarction or congestive heart failure. If the patient is otherwise stable, he may be discharged home tomorrow. I will attempt to get a transthoracic echocardiogram performed prior to discharge, to evaluate for any evidence of cardiac constriction diastolic dysfunction or other complications of bypass surgery. The patient has no physical exam evidence of any of these conditions however. If the patient cannot have his echocardiogram performed tomorrow, this could be performed on an outpatient basis. The patient may otherwise be discharged to home and have followup with Dr. Brian. 2. Coronary artery disease: Continue aspirin 81 mg daily if tolerated as well as atorvastatin 40 mg p.o. q.h.s. Thank you for allowing me to participate in the care of Mr. Obrien. The Cardiology Service will continue to follow the patient during this hospitalization. JCH/JASON aPris Arndt MD / [id number] CC: Juliana Da Silva M.D.
--- NOTE | ~2016-09-14 | HP ---
History And Physical [facility] [id number] [place]. [address] NAME: ELISA OBRIEN : 40 STATUS : ADM IN [facility]#: [id number] AGE: 75 ADM/REG DATE : 09/14/16 MR#: [id number] REPORT SERV DATE: 09/14/16 DICTATED BY: ELLEN FOWLER DATE: 09/14/16 REPORT STATUS : Draft TRANSCRIBED BY: MODL DATE: 09/14/16 DATE OF ADMISSION: 09/14/2016 CHIEF COMPLAINT: Nausea, vomiting, and dizziness. HISTORY OF PRESENT ILLNESS: The patient is a very pleasant 75-year-old white male. He presents today stating that he has been feeling dizzy and weak now for sometime. He notes over the last 24 hours, he has had some nausea and several episodes of emesis. He has had no abdominal pain. No diarrhea. No fever. No chest pain. No shortness of breath. He has an ileostomy. He has had no change in his stool. He has had no new cough. He notes at home his states his blood pressure has been in the 80s, actually called Dr. Brian's office, and they made some adjustments to his medications but he continues to be mildly hypotensive. He has no other real complaints today. PAST MEDICAL HISTORY: 1. CAD with history of CABG in August 2016. 2. Hyperlipidemia. 3. Dysphagia. 4. GERD status post Denisse. 5. Diverticulosis. 6. Hyperlipidemia. 7. Ulcerative colitis with history of ileostomy and colectomy. SURGICAL HISTORY: 1. Ileostomy and colectomy secondary to UC. 2. Tonsillectomy. 3. Sinus surgery. 4. Denisse. 5. Left lower extremity varicose vein stripping. 6. CABG. SOCIAL HISTORY: He is . No tobacco or alcohol use. FAMILY HISTORY: His mom of an aneurysm at the age of 90 in her brain. ALLERGIES: PENICILLIN. HOME MEDICATIONS: Reviewed and attached. REVIEW OF SYSTEMS: A full 10-point review of systems obtained, pertinent positives mentioned in HPI. PHYSICAL EXAMINATION: VITAL SIGNS: Current vital signs, BP 127/80, sats 99%. Temperature 98.0, respiratory rate 16, pulse 74. Orthostatic blood pressures; lying flat, he is 116/64 with a pulse of 74. Standing he is 80/55 with a pulse of 81. History And Physical [facility] [address] [facility] [place]. [address] NAME: ELISA OBRIEN : 40 STATUS : ADM IN PAT#: [id number] AGE: 75 ADM/REG DATE : 09/14/16 MR#: [id number] REPORT SERV DATE: 09/14/16 DICTATED BY: ELLEN FOWLER DATE: 09/14/16 REPORT STATUS : Draft TRANSCRIBED BY: JASON DATE: 09/14/16 GENERAL: A well-developed white male, pleasant talkative, in no obvious distress. HEENT: Normocephalic, atraumatic. Throat is clear. NECK: Supple. HEART: Regular rate and rhythm. LUNGS: Grossly clear. ABDOMEN: Soft, nontender, nondistended. EXTREMITIES: Warm and dry. Pulses 2+ at the feet. SKIN: Intact without obvious rash or lesion. NEURO: He has symmetrical strength and tone in all four extremities. PSYCH: His mood and affect are appropriate. LABORATORY AND X-RAY: White count is 12, H and H 13 and 39, platelets are 337. Coags are normal. Chest x-ray is negative. LFTs are normal. Mag is normal. Lipase is normal. Troponin is normal. Sodium 131, potassium 5, chloride 93, CO2 of 27, BUN and creatinine 58 and 2.63, glucose 119, CPK 41. UA shows 6 red but 3 whites. EKG showed sinus rhythm. ASSESSMENT/PLAN: 1. Dizziness with evidence of orthostatic hypotension and acute kidney injury. I suspect most of this is due to hypotension, possible ATN from having a low blood pressure secondary to blood pressure medications. I am holding all his blood pressure medications. I am going to hydrate him overnight. We will obtain a CT of the abdomen and pelvis to rule out urinary obstruction. We will place a Murillo catheter. We will send off urine electrolytes, again holding antihypertensives. We will hydrate aggressively overnight and follow serial labs. His nausea and vomiting have resolved. We will provide p.r.n. Zofran. His abdominal exam is benign but he is going to need CT anyway. 2. Nausea and vomiting. Please see #1. Again CT abdomen and pelvis, I suspect will be benign. He has improved now. His abdominal exam is benign. His labs were unrevealing other than a mild white count, but his urine is negative. Chest x-ray is negative. 3. History of coronary artery disease with recent CABG. 4. Hyperlipidemia. 5. History of dysphagia, gastroesophageal reflux disease, and a Denisse. 6. Deep venous thrombosis prophylaxis. Subcutaneous heparin. 7. Disposition. Pending above. SHAMEKA/JASON Ellen Fowler M.D. / [id number] History And Physical [address] [address] NAME: ELISA OBRIEN : 40 STATUS : ADM IN [facility]#: [id number] AGE: 75 ADM/REG DATE : 09/14/16 MR#: [id number] REPORT SERV DATE: 09/14/16 DICTATED BY: ELLEN FOWLER DATE: 09/14/16 REPORT STATUS : Draft TRANSCRIBED BY: JASON DATE: 09/14/16 CC: Juliana Rinaldi M.D. Vimal Ramjee, MD
[2016-09-14 09:04] LABS: BASOPHILS 0.2 %; BASOPHILS ABSOLUTE 0.03 10/3/uL (0.0-0.16); EOSINOPHILS 5.4 %; EOSINOPHILS ABSOLUTE 0.66 10/3/uL (0.0-0.53); IMMATURE GRANULOCYTES 0.4 %; IMMATURE GRANULOCYTES ABSOLUTE 0.05 10/3/uL (0.0-0.11); LYMPHOCYTES 8.3 %; LYMPHOCYTES ABSOLUTE 1.01 10/3/uL (0.67-4.30); MEAN CORPUS HGB CONC 33.8 g/dL (32.0-36.0); MEAN CORPUSCULAR HEMOGLOB 27.4 pg (26.0-34.0); MEAN PLATELET VOLUME 9.6 fL (9.2-13.0); MONOCYTES 5.7 %; NEUTROPHILS ABSOLUTE 9.76 10/3/uL (2.02-8.40); RBC DISTRIBUTION WIDTH 15.9 % (12.0-16.0); WHITE BLOOD CELLS 12.2 10/3/uL (4.5-10.5)
[2016-09-14 09:06] LABS: ER CBC TAT 0 Hrs 05 Mins; HEMATOCRIT 39.7 % (40.0-51.0); HEMOGLOBIN 13.4 g/dL (13.6-17.8); MANUAL DIFF NO %; MEAN CORPUSCULAR VOLUME 81.2 fL (80-100); PLATELET COUNT 337 10/3/uL (150-400); RED CELL COUNT 4.89 10/6/uL (4.7-6.1)
[2016-09-14 09:21] LABS: INTERNATIONAL NORMAL RATI 1.1 UNITS (-); PARTIAL THROMBO TIME 26.9 SEC (22.5-37.2); PROTIME (NOT ORD) 13.7 SEC (12.0-14.5)
[~2016-09-14 09:23] MED LIST changes: +ASA5GR PO; +ASAB PO; +CORDARONE PO; +LIPITOR40 PO; +LOP25 PO; +PERCOCET 10/3251 TAB PO; +PRIN2.5 PO; +SENTAB PO; +ZANTAC 150 PO
[2016-09-14 09:26] LABS: CHEST PAIN PROFILE TAT 0 Hrs 27 Mins; CO2 (CARBON DIOXIDE) 27 MMOL/L (24-34); GLUCOSE, SERUM 119 MG/DL (60-99); SGOT(AST) 15 U/L (5-40); SGPT(ALT) 17 U/L (5-65); TOTAL PROTEIN 8.3 G/DL (6.0-8.5); TROPONIN I <0.02 NG/ML (<0.05)
[2016-09-14 09:27] LABS: ALBUMIN 4.1 G/DL (3.5-5.0); ALKALINE PHOSPHATASE 112 U/L (45-117); BUN (BLOOD UREA NITROGEN) 58 MG/DL (6-23); CALCIUM, SERUM 10.2 MG/DL (8.5-10.4); CHLORIDE, SERUM 93 MMOL/L (96-112); CREATININE 2.63 MG/DL (0.70-1.30); DIRECT BILIRUBIN 0.1 MG/DL (0.0-0.4); GFR AFRICAN AMERICAN 26 ML/MIN (>=60); GFR NON AFRICAN AMERICAN 23 ML/MIN (>=60); INDIRECT BILIRUBIN(NOT ORDER) 0.9 MG/DL (0.1-0.9); SODIUM, SERUM 131 MMOL/L (135-148)
[2016-09-14] MEDS ORDERED: LIPITOR40 PO (10:26)
[2016-09-14] MEDS ORDERED: LOP25 PO (10:26)
[2016-09-14] MEDS ORDERED: ASAB PO (10:27)
[2016-09-14] MEDS ORDERED: ZANTAC 150 PO (10:27)
[2016-09-14 13:59] LABS: ASCORBIC ACID (UR NOT ORDER) NEG (NEG); BILIRUBIN, URINE NEGATIVE (NEG); KETONE, URINE NEGATIVE (NEG); LEUKOCYTE ESTERASE(NOT OR NEG (NEG); WBC (NOT ORDERED) (RFLEX) 3 (0-5)
[2016-09-14 14:28] LABS: SODIUM, URINE < 5 MEQ/L
[2016-09-15 04:47] LABS: BASOPHILS 0.5 %; BASOPHILS ABSOLUTE 0.05 10/3/uL (0.0-0.16); EOSINOPHILS 13.5 %; EOSINOPHILS ABSOLUTE 1.32 10/3/uL (0.0-0.53); HEMOGLOBIN 11.4 g/dL (13.6-17.8); IMMATURE GRANULOCYTES 0.2 %; IMMATURE GRANULOCYTES ABSOLUTE 0.02 10/3/uL (0.0-0.11); LYMPHOCYTES 16.6 %; LYMPHOCYTES ABSOLUTE 1.63 10/3/uL (0.67-4.30); MEAN CORPUS HGB CONC 32.3 g/dL (32.0-36.0); MEAN CORPUSCULAR VOLUME 83.6 fL (80-100); MEAN PLATELET VOLUME 9.6 fL (9.2-13.0); MONOCYTES 6.9 %; MONOCYTES ABSOLUTE 0.68 10/3/uL (0.21-1.20); NEUTROPHILS 62.3 %; NEUTROPHILS ABSOLUTE 6.11 10/3/uL (2.02-8.40); PLATELET COUNT 277 10/3/uL (150-400); RBC DISTRIBUTION WIDTH 16.4 % (12.0-16.0); RED CELL COUNT 4.22 10/6/uL (4.7-6.1); WHITE BLOOD CELLS 9.8 10/3/uL (4.5-10.5)
[2016-09-15 04:49] LABS: HEMATOCRIT 35.3 % (40.0-51.0); MANUAL DIFF NO %
[2016-09-15 05:03] LABS: CHLORIDE, SERUM 102 MMOL/L (96-112); CO2 (CARBON DIOXIDE) 25 MMOL/L (24-34); GLUCOSE, SERUM 98 MG/DL (60-99); POTASSIUM, SERUM 4.3 MMOL/L (3.5-5.3); SODIUM, SERUM 135 MMOL/L (135-148)
[2016-09-15 05:04] LABS: BUN (BLOOD UREA NITROGEN) 44 MG/DL (6-23); CALCIUM, SERUM 8.3 MG/DL (8.5-10.4); CREATININE 1.93 MG/DL (0.70-1.30); GFR AFRICAN AMERICAN 38 ML/MIN (>=60); GFR NON AFRICAN AMERICAN 33 ML/MIN (>=60)
[2016-09-16 05:53] LABS: CALCIUM, SERUM 8.3 MG/DL (8.5-10.4); CHLORIDE, SERUM 110 MMOL/L (96-112); CO2 (CARBON DIOXIDE) 24 MMOL/L (24-34); CREATININE 1.51 MG/DL (0.70-1.30); GFR AFRICAN AMERICAN 52 ML/MIN (>=60); GFR NON AFRICAN AMERICAN 45 ML/MIN (>=60); GLUCOSE, SERUM 96 MG/DL (60-99); POTASSIUM, SERUM 4.1 MMOL/L (3.5-5.3); SODIUM, SERUM 140 MMOL/L (135-148)
[2016-09-16 05:54] LABS: BUN (BLOOD UREA NITROGEN) 26 MG/DL (6-23)
== END 2016-09-17 18:30 | disposition home or self-care (01) | DRG 684 ==
LOC: ER 09:23 → 5NO 10:21
PROVIDERS: Emergency Medicine; Internal Medicine
DX: N17.9 Acute kidney failure, unspecified (principal); E78.5 Hyperlipidemia, unspecified; I25.10 Atherosclerotic heart disease of native coronary artery without angina pectoris; Z95.1 Presence of aortocoronary bypass graft; K21.9 Gastro-esophageal reflux disease without esophagitis; Z79.899 Other long term (current) drug therapy; Z90.49 Acquired absence of other specified parts of digestive tract; Z98.890 Other specified postprocedural states; Z88.0 Allergy status to penicillin; Z79.82 Long term (current) use of aspirin
CPT/HCPCS: 71010; 74176; 80048; 80076; 81001; 82550; 82570; 83690; 83735; 84300; 84484; 85025; 85610; 85730; 93005; 93306; 96374; 99285; A9270-GY; J1170; J2405